=== PATIENT | male | born 1950 | race Caucasian/White ===

== ENCOUNTER 2018-10-31 09:43 | Inpatient (IN) | payer OTHER | END 2018-11-03 17:00 | disposition home or self-care (01) | LOC: SUR 09:43 → TELE-EAST 09:44 | PROC: 0MB Bursae and Ligaments, Excision (ICD-10-PCS; principal; 2018-10-31 12:15) | PROC: 0SR90JZ Replacement of Right Hip Joint with Synthetic Substitute, Open Approach (ICD-10-PCS; 2018-10-31 12:15) | DX: M16.11 Unilateral primary osteoarthritis, right hip (principal); M70.61 Trochanteric bursitis, right hip ==